=== PATIENT | female | born 1975 | race African-American/Black ===

== ENCOUNTER 2018-10-30 15:23 | Emergency (ER) | payer OTHER ==
--- NOTE | 2018-10-30 15:46 | EDM.PDOC ---
ED HPI GENERAL MEDICAL PROBLEM - General Chief Complaint: Upper Extremity Injury/Pain Stated Complaint: INJURED HAND Time Seen by Provider: 10/30/18 15:44 Source of Information: Reports: Patient History Limitations: Reports: No Limitations - History of Present Illness INITIAL COMMENTS - FREE TEXT/NARRATIVE: HISTORY AND PHYSICAL: History of present illness: She is a 43-year-old female here with complaint of left arm pain. She states that she fell on the ice yesterday and caught herself with her left hand. She denies any other injury and no head injury. She denies any distal pain, numbness or tingling and no proximal elbow or shoulder pain. He is otherwise in her usual state of health and has no other complaints at this time. Review of systems: As per history of present illness and below otherwise all systems reviewed and negative. Past medical history: As per history of present illness and as reviewed below otherwise noncontributory. Surgical history: As per history of present illness and as reviewed below otherwise noncontributory. Social history: No reported history of drug or alcohol abuse. Family history: As per history of present illness and as reviewed below otherwise noncontributory. Physical exam: General: Patient sitting comfortably in no acute distress and nontoxic appearing HEENT: Atraumatic, normocephalic, pupils reactive, negative for conjunctival pallor or scleral icterus, mucous membranes moist, throat clear, neck supple, nontender, trachea midline. No meningeal signs. Lungs: Clear to auscultation, breath sounds equal bilaterally, chest nontender. Heart: S1S2, regular, negative for clicks, rubs, or overt murmur. Abdomen: Soft, nondistended, nontender. Negative for masses or hepatosplenomegaly. Negative for costovertebral tenderness. Pelvis: Stable nontender. Genitourinary: Deferred. Rectal: Deferred. Extremities: There is no obvious swelling or deformity. Skin is intact. Pain to palpation of the distal radius and ulna. No elbow or shoulder pain to palpation. CMS intact distally. Atraumatic, negative for cords or calf pain. Neurovascular unremarkable. Neuro: Awake, alert, oriented. Cranial nerves II through XII unremarkable. Cerebellum unremarkable. Motor and sensory unremarkable throughout. Exam nonfocal. Notes: Diagnostics: Left wrist x-ray Therapeutics: Splint Prescriptions: None Impression: Left wrist injury Plan: 1. Ice, elevate, and motrin as instructed 2. Follow up with primary care provider 3. Return to ED as needed as discussed Definitive disposition and diagnosis as appropriate pending reevaluation and review of above. left hand Pain Score (Numeric/FACES): 8 - Related Data Allergies Allergy/AdvReac Type Severity Reaction Status Date / Time No Known Allergies Allergy Verified 10/30/18 15:40 Home Meds: Home Meds . [No Known Home Meds] 10/30/18 [History] Blood Pressure Medication 10/30/18 [History] Review of Systems - Review of Systems Review Of Systems: ROS reveals no pertinent complaints other than HPI. ED EXAM, GENERAL - Physical Exam Exam: See Below (see dictation) Course - Vital Signs Last Recorded V/S: Last Vital Signs Temp 98.6 F 10/30/18 15:41 Pulse 79 10/30/18 15:41 Resp 18 10/30/18 15:41 BP 143/78 H 10/30/18 15:41 Pulse Ox 98 10/30/18 15:41 Departure - Departure Time of Disposition: 16:15 Disposition: Home, Self-Care 01 Condition: Good Clinical Impression: Left wrist injury - Discharge Information Referrals: PCP,None [Primary Care Provider] - Forms: ED Department Discharge Additional Instructions: The following information is given to patients seen in the emergency department who are being discharged to home. This information is to outline your options for follow-up care. We provide all patients seen in our emergency department with a follow-up referral. The need for follow-up, as well as the timing and circumstances, are variable depending upon the specifics of your emergency department visit. If you don't have a primary care physician on staff, we will provide you with a referral. We always advise you to contact your personal physician following an emergency department visit to inform them of the circumstance of the visit and for follow-up with them and/or the need for any referrals to a consulting specialist. The emergency department will also refer you to a specialist when appropriate. This referral assures that you have the opportunity for follow-up care with a specialist. All of these measure are taken in an effort to provide you with optimal care, which includes your follow-up. Under all circumstances we always encourage you to contact your private physician who remains a resource for coordinating your care. When calling for follow-up care, please make the office aware that this follow-up is from your recent emergency room visit. If for any reason you are refused follow-up, please contact the [facility] Emergency Department at and asked to speak to the emergency department charge nurse. [facility] [address] [place] [id number] [id number] 1. Ice, elevate, and motrin as instructed 2. Follow up with primary care provider 3. Return to ED as needed as discussed
--- NOTE | 2018-10-30 16:08 | CR ---
EXAMINATION: Left wrist HISTORY: Pain COMPARISON: None TECHNIQUE: 2 views FINDINGS/IMPRESSION: There is no acute osseous abnormality, dislocation, or fracture. Bone mineralization and joint spaces are grossly preserved. Radiocarpal alignment is preserved.
== END 2018-10-30 16:26 | disposition home or self-care (01) ==
LOC: MW.ED 15:23
DX: S69.92XA Unspecified injury of left wrist, hand and finger(s), initial encounter (principal); W00.9XXA Unspecified fall due to ice and snow, initial encounter
CPT/HCPCS: 73100-26-LT; 73100-LT; 99282; 99283

== ENCOUNTER 2019-03-02 16:26 | Emergency (ER) | payer OTHER ==
[2019-03-02] MEDS ORDERED: Ketorolac 60 MG/2 ML SDV IM ONE (16:37)
--- NOTE | 2019-03-02 16:42 | EDM.PDOC ---
ED HPI GENERAL MEDICAL PROBLEM - General Chief Complaint: Lower Extremity Injury/Pain Stated Complaint: LEFT FOOT INJURY Time Seen by Provider: 03/02/19 16:29 Source of Information: Reports: Patient History Limitations: Reports: No Limitations - History of Present Illness INITIAL COMMENTS - FREE TEXT/NARRATIVE: HISTORY AND PHYSICAL: History of present illness: Patient is a 43-year-old female who presents to the emergency room with complaints of left ankle pain. She states prior to arrival she was mowing the lawn when her foot went into a hole resulting in a twisting motion. She does have medial left ankle pain which she describes as sharp and radiates up into her anterior villegas. She denies any fall or trauma. Patient was ambulatory into the emergency room without any difficulty, deficits or weakness. Denies any numbness or tingling of the affected extremity. Review of systems: As per history of present illness and below otherwise all systems reviewed and negative. Past medical history: As per history of present illness and as reviewed below otherwise noncontributory. Surgical history: As per history of present illness and as reviewed below otherwise noncontributory. Social history: See social history for further information Family history: As per history of present illness and as reviewed below otherwise noncontributory. Physical exam: General: Well-developed and well-nourished 43-year-old -[place] female. Alert and oriented. Nontoxic appearing and in no acute distress. HEENT: Atraumatic, normocephalic, pupils equal and reactive bilaterally, negative for conjunctival pallor or scleral icterus, mucous membranes moist, trachea midline. No drooling or trismus noted. No meningeal signs. No hot potato voice noted. Lungs: Clear to auscultation, breath sounds equal bilaterally. Heart: S1S2, regular rate and rhythm without overt murmur Abdomen: Soft, nondistended, nontender. Skin: Intact, warm, dry. No lesions or rashes noted. Extremities: Mild pain with palpation to the medial left ankle/foot. No pinpoint bony tenderness/malleolus tenderness. Strong pedal and pretibial pulses. Cap refill less than 3 seconds. Moves all extremities per self without difficulty or deficits, negative for cords or calf pain. Neurovascular unremarkable. Neuro: Awake, alert, oriented. Cranial nerves II through XII unremarkable. Cerebellum unremarkable. Motor and sensory unremarkable throughout. Exam nonfocal. Notes: X-ray shows no acute findings. Crutches and Dajuan wrap given with education. Supportive care measures were reviewed and discussed. Voices understanding and is agreeable to plan of care. Denies any further questions or concerns at this time. Diagnostics: Ankle x-ray Therapeutics: Toradol IM, crutches, dajuan wrap Prescription: Diclofenac Impression: Left ankle injury Plan: 1. Rest, ice, elevate the affected extremity. Please wear the dajuan and use crutches as directed. 2. Tylenol and/or Ibuprofen as needed for pain management. 3. Follow up with the Orthopedic provider as we discussed. Return to the ED as needed and as discussed. Definitive disposition and diagnosis as appropriate pending reevaluation and review of above. Left Ankle Pain Score (Numeric/FACES): 10 - Related Data Allergies Allergy/AdvReac Type Severity Reaction Status Date / Time No Known Allergies Allergy Verified 03/02/19 16:34 Home Meds: Home Meds hydroCHLOROthiazide [Hydrochlorothiazide] 12.5 mg PO DAILY 03/02/19 [History] Past Medical History Cardiovascular History: Reports: Hypertension - Infectious Disease History Infectious Disease History: Reports: None - Past Surgical History Musculoskeletal Surgical History: Reports: Shoulder Surgery Social & Family History - Family History Family Medical History: Noncontributory Review of Systems - Review of Systems Review Of Systems: ROS reveals no pertinent complaints other than HPI. ED EXAM, GENERAL - Physical Exam Exam: See Below (See dictation) Course - Vital Signs Last Recorded V/S: Last Vital Signs Temp 98.6 F 03/02/19 16:36 Pulse 83 03/02/19 16:36 Resp 20 03/02/19 16:36 BP 136/92 H 03/02/19 16:36 Pulse Ox 98 03/02/19 16:36 - Orders/Labs/Meds Orders: Active Orders 24 hr Category Date Time Status Ankle Min 3V Lt [CR] Stat Exams 03/02/19 16:37 Taken DME for Discharge [COMM] Stat Oth 03/02/19 17:29 Ordered Meds: Medications Discontinued Medications Generic Name Dose Route Start Last Admin Trade Name Freq PRN Reason Stop Dose Admin Ketorolac Tromethamine 60 mg 03/02/19 16:37 03/02/19 16:44 Toradol IM 03/02/19 16:38 60 mg ONETIME ONE Administration Departure - Departure Time of Disposition: 17:35 Disposition: Home, Self-Care 01 Clinical Impression: Left ankle injury Qualifiers: Encounter type: initial encounter Qualified Code(s): S99.912A - Unspecified injury of left ankle, initial encounter - Discharge Information Instructions: Ankle Sprain, [id number] Referrals: PCP,Not In Area [Primary Care Provider] - Forms: ED Department Discharge Additional Instructions: The following information is given to patients seen in the emergency department who are being discharged to home. This information is to outline your options for follow-up care. We provide all patients seen in our emergency department with a follow-up referral. The need for follow-up, as well as the timing and circumstances, are variable depending upon the specifics of your emergency department visit. If you don't have a primary care physician on staff, we will provide you with a referral. We always advise you to contact your personal physician following an emergency department visit to inform them of the circumstance of the visit and for follow-up with them and/or the need for any referrals to a consulting specialist. The emergency department will also refer you to a specialist when appropriate. This referral assures that you have the opportunity for follow-up care with a specialist. All of these measure are taken in an effort to provide you with optimal care, which includes your follow-up. Under all circumstances we always encourage you to contact your private physician who remains a resource for coordinating your care. When calling for follow-up care, please make the office aware that this follow-up is from your recent emergency room visit. If for any reason you are refused follow-up, please contact the [facility] Emergency Department at and asked to speak to the emergency department charge nurse. [facility] - [facility] Professional [address], [address] [place] [address] 1. Rest, ice, elevate the affected extremity. Please wear the Dajuan wrap and crutches as directed. 2. Tylenol and/or Ibuprofen as needed for pain management. 3. Follow up with the Orthopedic provider as we discussed. Return to the ED as needed and as discussed. - My Orders Last 24 Hours: My Active Orders 03/02/19 16:37 Ankle Min 3V Lt [CR] Stat 03/02/19 17:29 DME for Discharge [COMM] Stat - Assessment/Plan Last 24 Hours: My Active Orders 03/02/19 16:37 Ankle Min 3V Lt [CR] Stat 03/02/19 17:29 DME for Discharge [COMM] Stat
--- NOTE | 2019-03-02 17:36 | CR ---
INDICATION: Pt c/o lt ankle pain s/p injury. TECHNIQUE: Left ankle 3 views. COMPARISON: None. FINDINGS: Bones: Alignment is normal. No fractures or bone lesions. Joint spaces: Unremarkable. Soft tissues: Unremarkable. IMPRESSION: Unremarkable left ankle. Dictated by: Fan Lopez MD @ 03/02/2019 17:34:53 (Electronically Signed)
== END 2019-03-02 17:48 | disposition home or self-care (01) ==
LOC: MW.ED 16:26
DX: S99.912A Unspecified injury of left ankle, initial encounter (principal); X50.1XXA Overexertion from prolonged static or awkward postures, initial encounter
CPT/HCPCS: 73610; 96372; 99283; J1885; 99282

== ENCOUNTER 2019-09-04 13:42 | Emergency (ER) | payer SELFPAY ==
--- NOTE | 2019-09-04 14:08 | EDM.PDOC ---
ED HPI GENERAL MEDICAL PROBLEM - General Chief Complaint: Lower Extremity Injury/Pain Stated Complaint: HURT LEG Time Seen by Provider: 09/04/19 13:49 Source of Information: Reports: Patient History Limitations: Reports: No Limitations - History of Present Illness INITIAL COMMENTS - FREE TEXT/NARRATIVE: Presents reporting a fall on the ice 2 days ago. She has no trouble walking but she has tenderness from her right hip down to her right ankle particularly at night and when laying on her right side. She has taken BC powder and Tylenol without palliation. upper R lateral thigh Pain Score (Numeric/FACES): 8 - Related Data Allergies Allergy/AdvReac Type Severity Reaction Status Date / Time No Known Allergies Allergy Verified 09/04/19 13:58 Home Meds: Home Meds hydroCHLOROthiazide [Hydrochlorothiazide] 12.5 mg PO DAILY 03/02/19 [History] Diclofenac Sodium [Voltaren] 75 mg PO BIDMEALS PRN #20 tab.ec 09/04/19 [Rx] Past Medical History Cardiovascular History: Reports: Hypertension - Infectious Disease History Infectious Disease History: Reports: None - Past Surgical History Musculoskeletal Surgical History: Reports: Shoulder Surgery Other Musculoskeletal Surgeries/Procedures:: states she had a dislocation with a closed reduction Social & Family History - Family History Family Medical History: Noncontributory - Tobacco Use Smoking Status *Q: Never Smoker - Caffeine Use Caffeine Use: Reports: Tea - Recreational Drug Use Recreational Drug Use: No Review of Systems - Review of Systems Review Of Systems: Comprehensive ROS is negative, except as noted in HPI. ED EXAM, GENERAL - Physical Exam Exam: See Below Exam Limited By: No Limitations General Appearance: Alert, No Apparent Distress Ears: Normal External Exam Nose: Normal Inspection Throat/Mouth: Normal Inspection Head: Atraumatic, Normocephalic Neck: Normal Inspection Respiratory/Chest: No Respiratory Distress, Lungs Clear, Normal Breath Sounds Cardiovascular: Normal Peripheral Pulses, Regular Rate, Rhythm, No Murmur Extremities: Normal Inspection, Other (Anterior posterior drawer varus valgus stress test without laxity, lateral tenderness from hip down to ankle. No ecchymosis, erythema, deformity, swelling or crepitus. Posttibial pulse strong right.) Psychiatric: Normal Affect, Normal Mood Skin Exam: Warm, Dry, Intact, Normal Color, No Rash Lymphatic: No Adenopathy Course - Vital Signs Last Recorded V/S: Last Vital Signs Temp 36.6 C 09/04/19 13:52 Pulse 78 09/04/19 13:52 Resp 18 09/04/19 13:52 BP 142/64 H 09/04/19 13:52 Pulse Ox Departure - Departure Time of Disposition: 15:08 Disposition: Home, Self-Care 01 Condition: Good Clinical Impression: Myalgia - Discharge Information *PRESCRIPTION DRUG MONITORING PROGRAM REVIEWED*: Not Applicable *COPY OF PRESCRIPTION DRUG MONITORING REPORT IN PATIENT MATILDA: Not Applicable Referrals: PCP,None [Primary Care Provider] - [facility] [Outside] [facility] [Outside] Forms: ED Department Discharge Additional Instructions: The following information is given to patients seen in the emergency department who are being discharged to home. This information is to outline your options for follow-up care. We provide all patients seen in our emergency department with a follow-up referral. The need for follow-up, as well as the timing and circumstances, are variable depending upon the specifics of your emergency department visit. If you don't have a primary care physician on staff, we will provide you with a referral. We always advise you to contact your personal physician following an emergency department visit to inform them of the circumstance of the visit and for follow-up with them and/or the need for any referrals to a consulting specialist. The emergency department will also refer you to a specialist when appropriate. This referral assures that you have the opportunity for follow-up care with a specialist. All of these measure are taken in an effort to provide you with optimal care, which includes your follow-up. Under all circumstances we always encourage you to contact your private physician who remains a resource for coordinating your care. When calling for follow-up care, please make the office aware that this follow-up is from your recent emergency room visit. If for any reason you are refused follow-up, please contact the [facility] Emergency Department at and asked to speak to the emergency department charge nurse. 1. Diclofenac twice daily as needed for pain 2. Warm or cool packs whichever feels best 20 minutes every 3-4 hours 3. Follow up in primary care
--- NOTE | 2019-09-04 14:53 | CR ---
Right femur: AP and lateral views of the right femur were obtained. Comparison: No previous study. Lateral joint space narrowing appears to be present within the knee. Joint space within the right hip is preserved. No fracture or other bony abnormality is seen. Impression: 1. Lateral joint space narrowing within the knee. 2. Nothing acute is appreciated on right femur study. Diagnostic code #2 This report was dictated in [place] Standard Time MTDD
--- NOTE | 2019-09-04 14:54 | CR ---
Right tibia and fibula: AP and lateral views of the right tibia and fibula were obtained. No acute fracture or other bony abnormality is identified. Impression: Nothing acute is appreciated on right tibia and fibula exam. Diagnostic code #1 This report was dictated in [place] Standard Time MTDD
[2019-09-04] MEDS ORDERED: Ketorolac 60 MG/2 ML SDV IM ONE (16:10)
== END 2019-09-04 16:16 | disposition home or self-care (01) ==
LOC: MW.ED 13:42
DX: M79.10 Myalgia, unspecified site (principal); I10 Essential (primary) hypertension; Z79.899 Other long term (current) drug therapy
CPT/HCPCS: 73552; 73590; 96372; 99283; J1885